=== PATIENT | male | born 2000 | race Caucasian/White ===

== ENCOUNTER 2023-11-15 01:27 | Emergency (ER) | payer BC, SELFPAY ==
[2023-11-15 01:27] VITALS: BP 125/68; PULSE 82; RESP 18; TEMP 36.6; O2SAT 100; BMI 25.8
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
[2023-11-15] MEDS: iohexol 350 mg/mL 500 mL Btl (per mL) IV (01:51)
[2023-11-15 02:00] VITALS: BP 122/68; PULSE 77; RESP 16; O2SAT 98
[2023-11-15 02:30] VITALS: BP 110/68; PULSE 81; RESP 16; O2SAT 99
[2023-11-15 02:36] VITALS: BP 110/68; PULSE 89; RESP 16; O2SAT 99
== END 2023-11-15 03:04 | disposition short-term general hospital (02) ==
PROVIDERS: Emergency Provider Emergency Medicine
DX: S42.101A Fracture of unspecified part of scapula, right shoulder, initial encounter for closed fracture (principal); S32.018A Other fracture of first lumbar vertebra, initial encounter for closed fracture; S32.028A Other fracture of second lumbar vertebra, initial encounter for closed fracture; S32.038A Other fracture of third lumbar vertebra, initial encounter for closed fracture; S32.048A Other fracture of fourth lumbar vertebra, initial encounter for closed fracture; S36.119A Unspecified injury of liver, initial encounter; J93.9 Pneumothorax, unspecified; V86.59XA Driver of other special all-terrain or other off-road motor vehicle injured in nontraffic accident, initial encounter; S80.212A Abrasion, left knee, initial encounter
CPT/HCPCS: 70450; 71260; 72125; 73562; 74177; 99285